=== PATIENT | female | born 1990 | race Caucasian/White ===

== ENCOUNTER 2018-11-19 18:51 | Emergency (ER) | payer MEDICAID ==
[2018-11-19 18:59] VITALS: BP 119/79; PULSE 74; RESP 20; O2SAT 98
--- NOTE | 2018-11-19 20:03 | ED PDOC ---
HPI: General Adult Time Seen by Provider: 11/19/18 19:00 Chief Complaint (Nursing): Breast Problem Chief Complaint (Provider): Right breast pain History Per: Patient History/Exam Limitations: no limitations Onset/Duration Of Symptoms: Hrs Have you had recent travel within the past 21 days to any of the following countries: [place], [place], [place] or [place]?: No Current Symptoms Are (Timing): Still Present Additional History Per: Patient Additional Complaint(s): 28yo female with history of breast augmentation surgery 2 years ago, comes to ER reporting pain and redness to her right breast since this morning. She reporrts associated tactile fever as well as chills. Patient states she took 1tab Augmentin from left over antibiotics that were previously prescribed. She otherwise denies any nausea, vomiting, neck stiffness, throat pain, cough, or rhinorrhea. No additional complaints. PMD: Dr. Howell Past Medical History Reviewed: Historical Data, Nursing Documentation, Vital Signs Vital Signs: Last Vital Signs Temp 98.6 F 11/19/18 18:55 Pulse 74 11/19/18 18:55 Resp 20 11/19/18 18:55 BP 119/79 11/19/18 18:55 Pulse Ox 98 11/19/18 18:55 Primary Care Provider: FAMILY PROVIDER,NO - Medical History PMH: No Chronic Diseases - Surgical History Other surgeries: breast implants - Family History Family History: States: No Known Family Hx - Home Medications Home Medications: Ambulatory Orders Medication Instructions Recorded Clindamycin [Cleocin] 300 mg PO TID 10 Days cap 11/19/18 Ibuprofen [Motrin Tab] 600 mg PO Q6 #30 tab 11/19/18 - Allergies Allergies/Adverse Reactions: Allergies Allergy/AdvReac Type Severity Reaction Status Date / Time No Known Allergies Allergy Verified 11/19/18 18:54 Review of Systems ROS Statement: Except As Marked, All Systems Reviewed And Found Negative Constitutional: Positive for: Fever (tactile), Chills Musculoskeletal: Positive for: Other (right breast pain) Physical Exam - Reviewed Nursing Documentation Reviewed: Yes Vital Signs Reviewed: Yes - Physical Exam Appears: Positive for: Non-toxic, No Acute Distress Head Exam: Positive for: ATRAUMATIC, NORMAL INSPECTION, NORMOCEPHALIC Skin: Positive for: Normal Color Eye Exam: Positive for: EOMI, PERRL Neck: Positive for: Supple Cardiovascular/Chest: Positive for: Regular Rate, Rhythm. Negative for: Tachycardia Respiratory: Positive for: Normal Breath Sounds. Negative for: Respiratory Distress Neurological/Psych: Positive for: Awake, Alert, Normal Tone Comments: Breast: Erythema noted inferior to right breast. No asymmetry compared to other breast. No other significant abnormality upon palpation. 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 Patient declined labs at this time Informed to take medications as prescribed; instructed to complete full course of antibiotics Patient informed to rest, increase fluid intake and to follow up with PMD for outpatient MRI or ultrasound. Return precautions given. Patient stable for discharge home. Scribe Attestation: Documented by Nu Robles acting as a scribe for Remi Evans MD. Provider Scribe Attestation: All medical record entries made by the Scribe were at my direction and personally dictated by me. I have reviewed the chart and agree that the record accurately reflects my personal performance of the history, physical exam, medical decision making, and the department course for this patient. I have also personally directed, reviewed, and agree with the discharge instructions and disposition. Disposition - Clinical Impression Clinical Impression: Cellulitis of breast - Disposition Referrals: Óscar Howell MD [Family Provider] - Disposition: Routine/Home Disposition Time: 20:00 Condition: GOOD Additional Instructions: Please take the medications as prescribed. Please schedule an ultrasound of your breast with Dr. Howell. Please see your surgeon regarding your breast implant for MRI if warranted by your doctor. Prescriptions: Clindamycin [Cleocin] 300 mg PO TID 10 Days cap Ibuprofen [Motrin Tab] 600 mg PO Q6 #30 tab Instructions: Cellulitis (Skin Infection), Adult (DC) Forms: [facility] ([place]), [facility] School/Work Excuse
[2018-11-19 20:27] VITALS: TEMP 101.7
== END 2018-11-19 20:28 | disposition home or self-care (01) ==
LOC: H.ER 18:51
DX: L03.319 Cellulitis of trunk, unspecified (principal)